=== PATIENT | female | born 1990 | race Caucasian/White ===

== ENCOUNTER → 2019-03-05 15:13 | Outpatient (POV) | payer OTHER, SELFPAY | PROVIDERS: Visit Provider Dentist | DX: Z00.00 Encounter for general adult medical examination without abnormal findings (principal) ==

== ENCOUNTER 2024-12-25 08:40 | Outpatient (CLI) | payer OTHER, SELFPAY ==
--- OUTSIDE RECORDS SUMMARY | 2024-10-14 13:00 | XMS_ITS | Encounter Summary ---
Author Organization [facility] Address [address] [place] [address] Care Team Providers Care Venetian Blind Installer Name Role Phone Jayden Cortes MD, Harold Primary Care Provider + Tej Krishnan MD Unavailable [phone] Ayan Edwards APRN Unavailable [phone] Reason for Visit * Reason Comments Follow-up Encounter Details Date Type Department Care Team (Latest Contact Info) Description 10/14/2024 1:00 PM EDT Office Visit [facility] [address] [facility] [address] [place] [address] Audrey Pike PA [address] [place] [address] Femoroacetabular impingement of right hip (Primary Dx); Greater trochanteric bursitis of right hip Social History Tobacco Use Types Packs/Day Years Used Date Smoking Tobacco: Never Passive Smoke Exposure: Never Smokeless Tobacco: Never Alcohol Use Standard Drinks/Week Comments Yes 2 (1 standard drink = 0.6 oz pur e alcohol) Rarely Comments No Sex and Gender Information Value Date Recorded Sex Assigned at Not on file Legal Sex Female 12:24 AM EDT Gender Identity Not on file Sexual Orientation Not on file documented as of this encounter Ordered Prescriptions Prescription Sig Dispense Quantity Refills Last Filled Start Date End Date meloxicam (MOBIC) 15 mg Oral Tablet Take 1 Tablet by mouth daily. 30 Tablet 10/14/2024 documented in this encounter Progress Notes * Audrey Pike PA - 10/14/2024 1:00 PM EDT Images from the original note were not included. PATIENT NAME: Josiah Sutton DATE OF (age): 34 y.o. PHYSICIAN: Jeffrey Starr MD Date of Visit: 10/14/2024 Subjective: Chief Complaint: Chief Complaint Patient presents with Right Hip - Follow-up Patient returns for evaluation of right hip(s). Patient is doing: She still experiencing the same symptoms. Did not start physical therapy until last week Relevant point review of (Review of Systems Form, Injury Forms, and/or History Forms) dated 10/14/2024 (or most recent visit to [facility]) was reviewed and all pertinent positives were reviewed and are available in the patient's chart Objective: General: Well-appearing with appropriate affect. No acute distress.normal body habitus. Appears stated age. Head: Normocephalic atraumatic Ears and Nose: External appearance is normal. Skin: Warm and dry. Color natural. Neuro: Alert and orientated to person,place and time. Normal neurosensory response to touch. Pulmonary: Respirations are unlabored and regular. Chest expansion appears symmetic. Cardiovascular: No signs of peripheral edema. Gait: Walks with a nonantalgic gait. Psychiatric: Mood is appropriate for circumstances. Ortho Exam: Negative logroll. Negative Stinchfield. Positive CELESTINE. Positive FADIR. Full range of motion. No tenderness palpation of the greater trochanter. Positive tenderness to palpation over the right SI joint. Assessment and Plan: Patient has right hip femoroacetabular impingement and greater trochanteric bursitis. She has been taking meloxicam with some relief. She completed her first session of physical therapy last week. She is noting a catching sensation in the hip and pain with hip rotation. At this point I would recommend completing 6 weeks of physical therapy as she just recently started. If no improvement, will order MRI of the right hip to evaluate for labral tear. She does have some tenderness to palpation overthe right SI joint and we discussed this could be another pain generator. I will have the patient follow-up in 6 weeks. Diagnoses and all orders for this visit: Femoroacetabular impingement of right hip Greater trochanteric bursitis of right hip Other orders - meloxicam (MOBIC) 15 mg Oral Tablet; Take 1 Tablet by mouth daily. Dispense: 30 Tablet; Refill: 0 Imaging results: None today DME Summary No orders found for display Audrey Pike PA-C documented in this encounter Plan of Treatment Upcoming Encounters Date Type Department Care Team (Late st Contact Info) Description 12/26/2024 1:00 PM EDT Ancillary Procedure [facility] MRI [address] [place] [address] Audrey Pike PA [address] [place] [address] 12/30/2024 9:15 AM EDT Office Visit [facility] [address] [address] Jeffrey Starr MD [address] [place] [address] 12/30/2024 11:10 AM EDT Clinical Support [facility] [address] [phone] 02/03/2025 10:30 AM EST Office Visit [facility] [address] [address] Garry Wilson MD [address] [address] 04/08/2025 3:40 PM EST Office Visit [facility] [address] [place] [address] Bonnie Callahan MD 40 [facility] [address] [place] [address] documented as of this encounter Visit Diagnoses Diagnosis Femoroacetabular impingement of right hip- Primary Enthesopathy of hip region Greater trochanteric bursitis of right hip Enthesopathy of hip region documented in this encounter Care Teams Venetian Blind Installer Relationship Specialty Start Date End Date Jorge Carpenter MD [address] [place] [phone] PCP - General Family Medicine 07/21/12 Tej Krishnan MD [address] [place] [phone] Otolaryngology 06/03/23 Ayan Edwards APRN [address] [place] [address] Nurse Practitioner 08/21/23 documented as of this encounter
--- OUTSIDE RECORDS SUMMARY | 2024-11-11 09:00 | XMS_ITS | Encounter Summary ---
Author Organization [facility] Address [address] [place] [address] Care Team Providers Care Floor Cashier Name Role Phone Jayden Cortes MD, Jorge Primary Care Provider + Tej Krishnan MD Unavailable [phone] Ayan Edwards APRN Unavailable [phone] Reason for Visit * Reason Comments Pain Encounter Details Date Type Department Care Team (Late st Contact Info) Description 11/11/2024 9:00 AM EDT Office Visit [facility] [address] [facility] [address] [place] [address] Dale Pop, DP [address] [place] [address] Right foot pain (Primary Dx); Tarsometatarsal (joint) (ligament) sprain, right, initial encounter; Peroneal tendonitis, right; Poorly controlled diabetes mellitus (HCC) Social History Tobacco Use Types Packs/Day Years [...] on file documented as of this encounter Progress Notes * Cristian Castro Ortho Tech - 11/11/2024 9:00 AM EDTAssociated Order(s): short leg walking cast Short leg walking cast Date/Time: 11/11/2024 9:00 AM Performed by: Cristian Castro Ortho Tech Authorized by: Dale Pop DPM Consent given by: patient Timeout: Immediately prior to procedure a time out was called to verify the correct patient, procedure, equipment, system support specialist and site/side marked as required Pre-procedure assessment neurovascularly intact Procedure Manipulation performed? no manipulation performed Immobilization: cast Cast type: short leg Supplies used: cotton padding and Ortho-Glass (Stockinette, 4'' webroll, 6'' webroll, 5 rolls of 3'' fiberglass) Post-procedure assessment neurovascularly intact Patient tolerance: patient tolerated the procedure well with no immediate complications Comments Short leg walking cast with plantar plate and cast shoe applied in the usual fashion extending pastthe metatarsal heads. Tolerated well, no issues. NVI and eudermic post-application. Cast care instruction provided. Pt verbalized cast comfort and demonstrated ability to ambulate comfortably prior to leaving today. * Dale Pop DPM - 11/11/2024 9:00 AM EDT Images from the original note were not included. PATIENT NAME: Josiah Sutton DATE OF (age): 34 y.o. PHYSICIAN: Dale Pop DPM Date of Visit: 11/11/2024 Subjective: Chief Complaint: Chief Complaint Patient presents with Right Foot - Pain History: Josiah Sutton is a 34 y.o. female. I am familiar with this patient for multiple previous injuries. Disability keeps her away from work. She usually wears bilateral AFOs. 3 weeks ago, walking without the brace, she rolled her right ankle. Her AFO is now providing no help to her midfoot pain. Past Medical History: Reviewed registration form and medical history. Past Surgical History: Reviewed registration form and medical history. Family History: Reviewed registration form and medical history. Social History: Reviewed registration form and medical history. Review of Systems: Reviewed registration form and medical history. Objective Once again this is a diabetic patient who is not showing signs of peripheral neuropathy or ischemia. She has pain at the 4th and 5th metatarsal base consistent with a tarsometatarsal sprain. She has acute pain at the insertion of the peroneus brevis tendon on the styloid process of the fifth metatarsal consistent with a tendon strain. Gait is altered to control those areas. I do not see other difficulties. Imaging We repeated x-rays of the right foot, AP, medial oblique, and lateral projections. They remain within normal limits at the fifth ray and elsewhere. Assessment Diagnoses and all orders for this visit: Right foot pain - XR FOOT RIGHT AP LATERAL AND OBLIQUE STANDING; Future - TX APPLICATION SHORT LEG CAST WALKING/AMBULATORY - TX CAST SUP SHRT LEG FIBERGLASS - short leg walking cast - TX AMBULATORY SURGICAL BOOT EAC Tarsometatarsal (joint) (ligament) sprain, right, initial encounter - TX APPLICATION SHORT LEG CAST WALKING/AMBULATORY - TX CAST SUP SHRT LEG FIBERGLASS - short leg walking cast - TX AMBULATORY SURGICAL BOOT EAC Peroneal tendonitis, right - TX APPLICATION SHORT LEG CAST WALKING/AMBULATORY - TX CAST SUP SHRT LEG FIBERGLASS - short leg walking cast - TX AMBULATORY SURGICAL BOOT EAC Poorly controlled diabetes mellitus (HCC) (Chronic) - TX APPLICATION SHORT LEG CAST WALKING/AMBULATORY - TX CAST SUP SHRT LEG FIBERGLASS - short leg walking cast - TX AMBULATORY SURGICAL BOOT EAC Plan Once again the patient is advised to try to get control of her blood sugars. Once again she is apprised of sequelae. Since the AFO is not providing enough stability to control the tarsometatarsal sprain or the insertional peroneus brevis tendinitis, immobilization is indicated. Will place the patient in a right short leg walking cast with proper education for use. The follow-up is in 3 weeks and assumes weekly improvement. I am having patient bring her AFOs with her for possible use. I will consider further tests or treatments at that time. DME Summary Normal Orders This Visit [place] AMBULATORY SURGICAL BOOT EAC [[id number] [facility]] Order #: [id number] This ambulatory patient has been prescribed a cast/post op shoe which is designed to provide support and comfort post-surgery, injury, or casting in addition providing shock absorption to the right foot and lower leg. Patient prescribed to wear the shoe during all ADLs so as not to cause further damage. Patient is to wear the product as prescribed until next patient visit. Verbal and written instructions for the use and application of this item were given. Patient was instructed that should the brace result in increased pain, decreased sensation, increased swelling or an overall worsening of their medical condition, to please contact our office immediately. Dale Pop DPM documented in this encounter Plan of Treatment Upcoming Encounters Date Type Department Care Team (Late st Contact Info) Description 12/26/2024 1:00 PM EDT [facility] [address] [place] [address] Audrey Pike PA [address] [place] [address] 12/30/2024 9:15 AM EDT Office Visit [facility] [address] [address] Jeffrey Starr MD [address] [place] [address] 12/30/2024 11:10 AM EDT Clinical Support [facility] [address] [address] 02/03/2025 10:30 AM EST Office Visit [facility] [address] [address] Garry Wilson MD [address] [address] 04/08/2025 3:40 PM EST Office Visit [facility] [address] [place] [address] Bonnie Callahan MD [address] [address] Scheduled Orders Name Type Priority Associated Diagnoses Orde r Schedule TX APPLICATION SHORT LEG CAST WALKING/AMBULATORY TX Charge Routine Right foot pain Tarsometatarsal (joint) (ligament) sprain, right, initial encounter Peroneal tendonitis, right Poorly controlled diabetes mellitus (HCC) Ordered: 11/11/2024 TX CAST SUP SHRT LEG FIBERGLASS TX Charge Routine Right foot pain Tarsometatarsal (joint) (ligament) sprain, right, initial encounter Peroneal tendonitis, right Poorly controlled diabetes mellitus (HCC) Ordered: 11/11/2024 TX AMBULATORY SURGICAL BOOT EAC TX Charge Routine Right foot pain Tarsometatarsal (joint) (ligament) sprain, right, initial encounter Peroneal tendonitis, right Poorly controlled diabetes mellitus (HCC) Ordered: 11/11/2024 documented as of this encounter Procedures Procedure Name Priority Date/Time Associated Diagnosis Comments CAST APPLICATION Routine 11/11/2024 9:00 AM EDT Right foot pain Tarsometatarsal (joint) (ligament) sprain, right, initial encounter Peroneal tendonitis, right Poorly controlled diabetes mellitus (HCC) documented in this encounter Results * XR FOOT RIGHT AP LATERAL AND OBLIQUE STANDING (11/11/2024 9:24 AM EDT) Narrative Doug Corbin - 11/11/2024 9:24 AM EDT Please see physician's note from office encounter for x-ray imaging result Dale Pop DPM IMG DIAGNOSTIC IMAGING OR DERABLES Final Result * short leg walking cast (11/11/2024 9:00 AM EDT) Narrative [facility] - 11/11/2024 9:00 AM EDT Cristian Castro Computer Numerical Control Operator 11/12/2024 1:44 PM Short leg walking cast Date/Time: 11/11/2024 9:00 AM Performed by: Cristian Castro Computer Numerical Control Operator Authorized by: Dale Pop DPM Consent given by: patient Timeout: Immediately prior to procedure a time out was called to verify the correct patient, procedure, equipment, system support specialist and site/side marked as required Pre-procedure assessment neurovascularly intact Procedure Manipulation performed? no manipulation performed Immobilization: cast Cast type: short leg Supplies used: cotton padding and Ortho-Glass (Stockinette, 4'' webroll, 6'' webroll, 5 rolls of 3'' fiberglass) Post-procedure assessment neurovascularly intact Patient tolerance: patient tolerated the procedure well with no immediate complications Comments Short leg walking cast with plantar plate and cast shoe applied in the usual fashion extending past the metatarsal heads. Tolerated well, no issues. NVI and eudermic post-application. Cast care instruction provided. Pt verbalized cast comfort and demonstrated ability to ambulate comfortably prior to leaving today. Dale Pop DPAnn Marie PROCEDURE/MINOR SURGICAL ORDERABLES Final Result [facility] documented in this encounter Visit Diagnoses Diagnosis Right foot pain- Primary Pain in limb Tarsometatarsal (joint) (ligament) sprain, right, initial encounter Peroneal tendonitis, right Poorly controlled diabetes mellitus (HCC) Type II or unspecified type diabetes mellitus without mention of complication, not stated as uncontrolled Right foot pain Pain in limb documented in this encounter Care Teams Floor Cashier Relationship Specialty Start Date End Date Jorge Carpenter MD [address] [place] [phone] PCP - General Family Medicine 07/21/12 Tej Krishnan MD [address] [place] [phone] Otolaryngology 06/03/23 Ayan Edwards APRN [address] [place] [address] Nurse Practitioner 08/21/23 documented as of this encounter
--- OUTSIDE RECORDS SUMMARY | 2024-11-11 09:20 | XMS_ITS | Encounter Summary ---
Author Organization [facility] Address [address] [place] [address] Care Team Providers Care Process Coordinator Name Role Phone Jayden Cortes MD, Jorge Primary Care Provider + Tej Krishnan MD Unavailable [phone] Ayan Edwards APRN Unavailable [phone] Encounter Details Date Type Department Care Team (Latest Contact Info) Description 11/11/2024 9:20 AM EDT Ancillary Procedure [facility] [address] [facility] [address] [place] [address] Dale Pop, DPAnn Marie [address] [place] [address] Right foot pain Social History Tobacco Use Types Packs/Day Years [...] on file documented as of this encounter Plan of Treatment Upcoming Encounters Date Type Department Care Team (Late st Contact Info) Description 12/26/2024 1:00 PM EDT Ancillary Procedure [facility] [address] [place] [address] Audrey Pike PA [address] [place], [place] [phone] 12/30/2024 9:15 AM EDT Office Visit [facility] [address] [address] Jeffrey Starr MD [address] [place] [address] 12/30/2024 11:10 AM EDT Clinical Support [facility] [address] [address] 02/03/2025 10:30 AM EST Office Visit [facility] [address] [address] Garry Wilson MD [address] [address] 04/08/2025 3:40 PM EST Office Visit [facility] [address] [place] [address] Bonnie Callahan MD [address] [phone] documented as of this encounter Procedures Procedure Name Priority Date/Time Associated Diagnosis Comments XR FOOT RIGHT AP LATERAL AND OBLIQUE STANDING Routine 11/11/2024 9:24 AM EDT Right foot pain documented in this encounter Results * XR FOOT RIGHT AP LATERAL AND OBLIQUE STANDING (11/11/2024 9:24 AM EDT) Narrative Doug Corbin - 11/11/2024 9:24 AM EDT Please see physician's note from office encounter for x-ray imaging result us Dale Pop DPM IMG DIAGNOSTIC IMAGING OR DERABLES Final Result documented in this encounter Visit Diagnoses Diagnosis Right foot pain Pain in limb documented in this encounter Care Teams Process Coordinator Relationship Specialty Start Date End Date Jorge Carpenter MD [address] [place] [address] PCP - General Family Medicine 07/21/12 Tej Krsihnan MD [address] [place] [phone] Otolaryngology 06/03/23 Ayan Edwards APRN [address] [place] [address] Nurse Practitioner 08/21/23 documented as of this encounter
--- OUTSIDE RECORDS SUMMARY | 2024-11-25 14:05 | XMS_ITS | Encounter Summary ---
Author Organization [facility] Address [address] [facility] [address] [place] [address] Care Team Providers Care Network Admin Name Role Phone Jayden Cortes MD, Jorge Primary Care Provider + Tej Krishnan MD Unavailable Ayan Edwards APRN Unavailable [phone] Reason for Visit * Reason Comments Immunotherapy Encounter Details Date Type Department Care Team (Latest Contact Info) Description 11/25/2024 2:05 PM EDT Clinical Support [facility] [address] [phone] Allergic rhinitis due to pollen, unspecified seasonality (Primary Dx); Need for desensitization to allergens Social History Tobacco Use Types Packs/Day Years [...] as of this encounter Progress Notes * Angelica Hatfield CCMA - 11/25/2024 2:05 PM EDT Two patient identifiers were verified immediately before administering 2 injections from CLIFTON and OP1 at 0.1 ml documented in this encounter Plan of Treatment Upcoming Encounters Date Type Department Care Team (Late st Contact Info) Description 12/26/2024 1:00 PM EDT Ancillary Procedure [facility] [address] [place] [address] Audrey Pike PA [address] [place] [address] 12/30/2024 9:15 AM EDT Office Visit [facility] [address] [address] Jeffrey Starr MD [address] [place] [address] 12/30/2024 11:10 AM EDT Clinical Support [facility] [address] [phone] 02/03/2025 10:30 AM EST Office Visit [facility] [address] [address] Garry Wilson MD [address] [address] 04/08/2025 3:40 PM EST Office Visit [facility] [address] [address] Bonnie Callahan MD [address] [address] documented as of this encounter Visit Diagnoses Diagnosis Allergic rhinitis due to pollen, unspecified seasonality- Primary Need for desensitization to allergens documented in this encounter Care Teams Network Admin Relationship Specialty Start Date End Date Jorge Carpenter MD [address] [place] [phone] PCP - General Family Medicine 07/21/12 Tej Krishnan MD [address] [place] [phone] Otolaryngology 06/03/23 Ayan Edwards APRN [address] [place] [address] Nurse Practitioner 08/21/23 documented as of this encounter
--- OUTSIDE RECORDS SUMMARY | 2024-11-25 16:00 | XMS_ITS | Encounter Summary ---
Author Organization [facility] Address [address] [place] [address] Care Team Providers Care Asian Studies Professor Name Role Phone Jayden Cortes MD, Jorge Primary Care Provider + Tej Krishnan MD Unavailable [phone] Ayan Edwards APRN Unavailable [phone] Reason for Referral * MRI/CAT Scan (Routine) - AFF Authorized Specialty Diagnoses / Procedures Referred By Contmackenzie t Referred To Contact Orthopedic Surgery Diagnoses Femoroacetabular impingement of right hip Greater trochanteric bursitis of right hip Procedures MRI HIP RIGHT WO CONTRAST Audrey Pike PA [address] [place] [address] Phone: tel: fax: [facility] [address] [place] [phone] Phone: tel: fax: Referral ID Status Reason Start Date Expiration Date Visits Requested Visits Authorized [id number] AFF Authorized 11/25/2024 11/25/2025 1 1 Reason for Visit * Reason Comments Follow-up Encounter Details Date Type Department Care Team (Latest Contact Info) Description 11/25/2024 4:00 PM EDT Office Visit [facility] [address] [place] [address] Audrey Pike PA [address] [place] [address] Femoroacetabular impingement of right hip (Primary Dx); [...] as of this encounter Progress Notes * Audrey Pike PA - 11/25/2024 4:00 PM EDT Images from the original note were not included. PATIENT NAME: Josiah Sutton DATE OF (age): 34 y.o. PHYSICIAN: Jeffrey Starr MD Date of Visit: 11/25/2024 Subjective: Chief Complaint: Chief Complaint Patient presents with Right Hip - Follow-up Patient returns for evaluation of right hip(s). Patient is doing: She still has pain at this point. She has done physical therapy which has not really helped, however she recently broke her foot which has hindered the ability to complete this. Still has tenderness when lying on her side at night. Relevant point review of (Review of Systems Form, Injury Forms, and/or History Forms) dated [facility]25[facility]20[facility] was reviewed and all pertinent positives were [...] Mood is appropriate for circumstances. Ortho Exam: Right hip- Negative logroll. Positive Stinchfield. Negative CELESTINE. Positive CELESTINE. Tenderness palpation of thegreater trochanter. 5/5 strength with resisted abduction. Assessment and Plan: Patient has right hip DEBBY and trochanteric bursitis. She tried physical therapy and meloxicam, however, she is still experiencing pain. Pain is located in the groin and over the lateral hip. We discussed trying a cortisone injection into the greater trochanter today, however she would like to avoid this as she has diabetes. At this point I recommendMRI of the hip to rule out labral tear. Follow-up after the MRI. Diagnoses and all orders for this visit: Femoroacetabular impingement of right hip - MRI HIP RIGHT WO CONTRAST; Future Greater trochanteric bursitis of right hip - MRI HIP RIGHT WO CONTRAST; Future Imaging results: None today DME Summary No orders found for display Audrey Pike PA-C documented in this encounter Plan of Treatment Upcoming Encounters Date Type Department Care Team (Late st Contact Info) Description 12/26/2024 1:00 PM EDT [facility] [address] [place] [address] Audrey Pike PA [address] [place] [address] 12/30/2024 9:15 AM EDT Office Visit [facility] [address] [address] Jeffrey Starr MD [address] [place] [address] 12/30/2024 11:10 AM EDT Clinical Support [facility] [address] [phone] 02/03/2025 10:30 AM EST [facility] [address] [address] Garry Wilson MD [address] [place] [address] 04/08/2025 3:40 PM EST Office Visit [facility] [address] [place], [place] [phone] Bonnie Callahan MD 40 [facility] 101 [place] [address] Scheduled Orders Name Type Priority Associated Diagnoses Orde r Schedule MRI HIP RIGHT WO CONTRAST Imaging Routine Femoroacetabular impingement of right hip Greater trochanteric bursitis of right hip 1 Occurrences starting 11/25/2024 until 11/25/2025 documented as of this encounter Visit Diagnoses Diagnosis Femoroacetabular impingement of right hip- Primary Enthesopathy of hip region Greater trochanteric bursitis of right hip Enthesopathy of hip region documented in this encounter Care Teams Asian Studies Professor Relationship Specialty Start Date End Date Jorge Carpenter MD [address] [place] [phone] PCP - General Family Medicine 07/21/12 Tej Krishnan MD [address] [place] [phone] Otolaryngology 06/03/23 Ayan Edwards APRN [address] [place] [phone] Nurse Practitioner 08/21/23 documented as of this encounter
--- OUTSIDE RECORDS SUMMARY | 2024-11-30 14:20 | XMS_ITS | Encounter Summary ---
Author Organization [facility] Address [address] [facility] [address] [place] [address] Care Team Providers Care Band Splicer Name Role Phone Jayden Cortes MD, Jorge Primary Care Provider + Tej Krishnan MD Unavailable [phone] Ayan Edwards APRN Unavailable [phone] Reason for Visit * Reason Comments Immunotherapy Encounter Details Date Type Department Care Team (Latest Contact Info) Description 11/30/2024 2:20 PM EDT Clinical Support [facility] [address] [phone] Allergic rhinitis due to pollen, [...] Progress Notes * Angelica Hatfield CCMA - 11/30/2024 2:20 PM EDT Two patient identifiers were verified immediately before administering 2 injections from CLIFTON and OPat 0.2 ml documented in this encounter Plan of Treatment Upcoming Encounters Date Type Department Care Team (Late st Contact Info) Description 12/26/2024 1:00 PM EDT Ancillary Procedure [facility] [address] [place] [address] Audrey Pike PA [address] [place] [address] 12/30/2024 9:15 AM EDT [facility] [address] [address] Jeffrey Starr MD [address] [place] [address] 12/30/2024 11:10 AM EDT Clinical Support [facility] [address] [phone] 02/03/2025 10:30 AM EST [facility] [address] [address] Garry Wilson MD [address] [address] 04/08/2025 3:40 PM EST Office Visit [facility] [address] [place] [address] Bonnie Callahan MD [address] [address] documented as of this encounter Visit Diagnoses Diagnosis Allergic rhinitis due to pollen, unspecified seasonality- Primary Need for desensitization to allergens documented in this encounter Care Teams Band Splicer Relationship Specialty Start Date End Date Jorge Carpenter MD [address] [place] [phone] PCP - General Family Medicine 07/21/12 Tej Krishnan MD [address] [place] [phone] Otolaryngology 06/03/23 Ayan Edwards APRN [address] [place] [phone] Nurse Practitioner 08/21/23 documented as of this encounter
--- OUTSIDE RECORDS SUMMARY | 2024-12-09 14:55 | XMS_ITS | Encounter Summary ---
Author Organization [facility] Address [address] [address] Care Team Providers Care Rental Sales Representative Name Role Phone Jayden Cortes MD, [place] Primary Care Provider + Tej Krishnan MD Unavailable [phone] Ayan Edwards APRN Unavailable [phone] Reason for Visit * Reason Comments Immunotherapy Encounter Details Date Type Department Care Team (Latest Contact Info) Description 12/09/2024 2:55 PM EDT Clinical Support [facility] [address] [phone] Allergic rhinitis due to pollen, [...] as of this encounter Progress Notes * Melany Braden MA - 12/09/2024 2:55 PM EDT Two patient identifiers were verified immediately before administering 2 injections from CLIFTON and OP1 at 0.3 ml documented in this encounter Plan of Treatment Upcoming Encounters Date Type Department Care Team (Late st Contact Info) Description 12/26/2024 1:00 PM EDT Ancillary Procedure [facility] [address] [place] [address] Audrey Pike PA [address] [place] [address] 12/30/2024 9:15 AM EDT [facility] [address] [address] Jeffrey Starr MD [address] [place] [address] 12/30/2024 11:10 AM EDT Clinical Support [facility] [address] [phone] 02/03/2025 10:30 AM EST [facility] [address] [address] Garry Wilson MD [address] [address] 04/08/2025 3:40 PM EST Office Visit [facility] [address] [address] Bonnie Callahan MD [address] [address] documented as of this encounter Visit Diagnoses Diagnosis Allergic rhinitis due to pollen, unspecified seasonality- Primary Need for desensitization to allergens documented in this encounter Care Teams Rental Sales Representative Relationship Specialty Start Date End Date Jorge Carpenter MD [address] [place] [phone] PCP - General Family Medicine 07/21/12 Tej Krishnan MD [address] [place] [phone] Otolaryngology 06/03/23 Ayan Edwards APRN [address] [place] [phone] Nurse Practitioner 08/21/23 documented as of this encounter
--- OUTSIDE RECORDS SUMMARY | 2024-12-09 15:45 | XMS_ITS | Encounter Summary ---
Author Organization [facility] Address [address] [place] [address] Care Team Providers Care Employee Development Director Name Role Phone Jayden Cortes MD, Jorge Primary Care Provider + Tej Krishnan MD Unavailable [phone] Ayan Edwards APRN Unavailable [phone] Reason for Visit * Reason Comments Follow-up Encounter Details Date Type Department Care Team (Latest Contact Info) Description 12/09/2024 3:45 PM EDT Office Visit [facility] [address] [facility] [address] [place] [address] Dale Pop DPM [address] [place] [phone] Sprain of ligament of tarsometatarsal joint of right foot, subsequent encounter (Primary Dx); Right foot pain; Peroneal tendonitis, right; Poorly controlled diabetes mellitus [...] as of this encounter Progress Notes * Dale Pop DPM - 12/09/2024 3:45 PM EDT Images from the original note were not included. PATIENT NAME: Josiah Sutton DATE OF (age): 34 y.o. PHYSICIAN: Dale Pop DPM Date of Visit: 12/09/2024 Subjective: Chief Complaint: Chief Complaint Patient presents with Right Foot - Follow-up History: Josiah Sutton is a 34 y.o. female. Once again, this is a diabetic with chronic poor control. She is here status post immobilization of her insertional peroneal tendinitis and her tarsometatarsal sprain causing pain at the lateral right midfoot. She describes improvement in the cast. Past Medical History: Reviewed registration form and medical history. Past Surgical History: Reviewed registration form and medical history. Family History: Reviewed registration form and medical history. Social History: Reviewed registration form and medical history. Review of Systems: Reviewed registration form and medical history. Objective Removal of the cast shows no neurovascular or dermatologic damage to the right leg. Both the pericuboid area and the insertion of the peroneus brevis tendon are greatly improved but not completely resolved in terms of pain. I do not see other changes. Imaging Deferred Assessment Diagnoses and all orders for this visit: Sprain of ligament of tarsometatarsal joint of right foot, subsequent encounter Right foot pain Peroneal tendonitis, right Poorly controlled diabetes mellitus (HCC) (Chronic) Plan The patient tried her AFO on, and we felt her stability was sufficient in the AFO that we could discontinue cast immobilization. The patient will continue to strengthen the leg and utilize the AFO appropriately. If she deteriorates once again, she knows she can call so that we can recast the right leg, putting the distal edge past the metatarsal heads as previous. I would want to see her 2 weeks after that. I do not believe she will need to be casted. She will follow- up only as needed, and she is again advised to get her blood sugars under control. DME Summary No orders found for display Dale Pop DPM * Leann Fregoso MA - 12/09/2024 3:45 PM EDTAssociated Order(s): Cast application Cast application Date/Time: 12/09/2024 3:45 PM Performed by: Leann Fregoso MA Authorized by: Dale Pop DPM Consent given by: patient Site marked: site marked Timeout: Immediately prior to procedure a time out was called to verify the correct patient, procedure, equipment, technician support engineer and site/side marked as required Injury Location details: right foot Pre-procedure assessment neurovascularly intact Procedure Immobilization: cast Cast type: short leg walking Modifications: cast removal Post-procedure assessment neurovascularly intact Patient tolerance: patient tolerated the procedure well with no immediate complications Comments Cast removed from pt using zip stick. Pt tolerated removal well with skin intact and was taken to xray. documented in this encounter Plan of Treatment Upcoming Encounters Date Type Department Care Team (Late st Contact Info) Description 12/26/2024 1:00 PM EDT [facility] [address] [place] [address] Audrey Pike PA [address] [place] [address] 12/30/2024 9:15 AM EDT Office Visit [facility] [address] [address] Jeffrey Starr MD [address] [place] [address] 12/30/2024 11:10 AM EDT Clinical Support [facility] [address] [phone] 02/03/2025 10:30 AM EST [facility] [address] [address] Garry Wilson MD [address] [address] 04/08/2025 3:40 PM EST Office Visit [facility] [address] [place], [place] [phone] Bonnie Callahan MD 40 [facility] [address] [place], [place] [phone] documented as of this encounter Procedures Procedure Name Priority Date/Time Associated Diagnosis Comments CAST APPLICATION Routine 12/09/2024 3:45 PM EDT documented in this encounter Results * Cast application (12/09/2024 3:45 PM EDT) Narrative [facility] - 12/09/2024 3:45 PM EDT Leann Fregoso MA 12/09/2024 5:49 PM Cast application Date/Time: 12/09/2024 3:45 PM Performed by: Leann Fregoso MA Authorized by: Dale Pop DPM Consent given by: patient Site marked: site marked Timeout: Immediately prior to procedure a time out was called to verify the correct patient, procedure, equipment, technician support engineer and site/side marked as required Injury Location details: right foot Pre-procedure assessment neurovascularly intact Procedure Immobilization: cast Cast type: short leg walking Modifications: cast removal Post-procedure assessment neurovascularly intact Patient tolerance: patient tolerated the procedure well with no immediate complications Comments Cast removed from pt using zip stick. Pt tolerated removal well with skin intact and was taken to xray. us Dale Pop DPM PROCEDURE/MINOR SURGICAL ORDERABLES Final Result [facility] documented in this encounter Visit Diagnoses Diagnosis Sprain of ligament of tarsometatarsal joint of right foot, subsequent encounter- Primary Right foot pain Pain in limb Peroneal tendonitis, right Poorly controlled diabetes mellitus (HCC) Type II or unspecified type diabetes mellitus without mention of complication, not stated as uncontrolled documented in this encounter Care Teams Employee Development Director Relationship Specialty Start Date End Date Jorge Carpenter MD [address] [place] [phone] PCP - General Family Medicine 4/29/13 Tej Krishnan MD [address] [phone] Otolaryngology 06/03/23 Ayan Edwards APRN [address] [place] [phone] Nurse Practitioner 08/21/23 documented as of this encounter
--- OUTSIDE RECORDS SUMMARY | 2024-12-23 14:00 | XMS_ITS | Encounter Summary ---
Author Organization [facility] Address [address] [place] [address] Care Team Providers Care Traveling Accountant Name Role Phone Jayden Cortes MD, Jorge Primary Care Provider + Tej Krishnan MD Unavailable [phone] Ayan Edwards APRN Unavailable [phone] Reason for Visit * Reason Comments Follow-up Pain Encounter Details Date Type Department Care Team (Late st Contact Info) Description 12/23/2024 2:00 PM EDT Office Visit [facility] [address] [address] Garry Wilson MD [address] [id number] Arthritis of left acromioclavicular joint (Primary Dx) Social History Tobacco Use Types Packs/Day Years [...] on file documented as of this encounter Last Filed Vital Signs Vital Sign Reading Time Taken Comments Blood Pressure - - Pulse - - Temperature - - Respiratory Rate - - Oxygen Saturation - - Inhaled Oxygen Concentration - - Weight 86.2 kg (190 lb) 12/23/2024 1:09 PM EDT Height 157.5 cm (5' 2 ) 12/23/2024 1:09 PM EDT Body Mass Index 34.75 12/23/2024 1:09 PM EDT documented in this encounter Progress Notes * Garry Wilson MD - 12/23/2024 2:00 PM EDT Images from the original note were not included. Carolina Fritz [facility]/ Orthopaedic Surgery/Sports Medicine [address] [place] [address] Patient Name: Josiah Sutton [id number] Date of : 1990 Patient Primary Care Physician: Jorge Carpenter MD DATE OF VISIT: 12/23/2024 This patient was seen in consultation with Dr. iWlson today. I am acting as a scribe. Chief Complaint: Left shoulder pain. Procedure Note: 02/10/2024 Dr Wilson POSTOPERATIVE DIAGNOSIS: Left knee lateral patellar compression syndrome. PROCEDURE PERFORMED: Left knee arthroscopic lateral release. Medical History: Past Medical History Past Medical History: Diagnosis Date Anemia takes iron for this Angina pectoris Anxiety Asthma Bipolar 1 disorder (HCC) Chronic kidney disease 2014 kidney stones, had stent put in Depression chronic Diabetes mellitus (HCC) VILLAVICENCIO (dyspnea on exertion) Heartburn ULCER History of recurrent ear infection Hyperlipidemia Hypertension Migraine Neuromuscular disorder (HCC) neuropathy bilateral feet Orthopnea has trouble breathing when flat on back Panic attack Shortness of breath Sleep apnea cannot use CPAP because of face mask Torn ligament right foot, bone disease where ankle roles Urinary tract infection on occasion Wears glasses but does not have any right now Review of Systems: Pertinent items are noted in HPI. Review of systems reviewed from patient history form is availablein the patient's chart. BMI: 35.36 per last recorded measurement. History: Josiah Sutton is a 34 y.o. female returns today with complaints of Left shoulder pain. I saw her initially on 10/06/2024. She states that she was helping one of her nieces on the [employer] bars little over a month ago and she let go and she caught her. The pain was not too bad that day but it got worse over time. She saw her primary care physician who gave her steroids orally told her to ice and some exercises that she could do. Now she states the pain is shooting down her arm when she cannot sleep. She notices that the muscle relaxer she takes for her hips do not help. She states that pain is significant and she would like to have a sling today. I sent her for an MRI of her shoulder. She followed up with Dr. Wilson on 10/21/2024. Her MRI showed an intact rotator cuff and biceps tendon. She did have a [place] complex. She had some AC arthritis. She went with a course of anti-inflammatories ice and formal physical therapy with modalities. She did not go to physical therapy she states the home exercise program did nothing for her. I again discussed with her today that they can do modalities to help her with her shoulder including iontophoresis dry needling and other types of procedures that may be beneficial since her MRI does not show any obvious surgical pathology. Physical Exam: The patient is alert and oriented adequately groomed in no acute distress. The shoulder has some pain to the greater tuberosity of the humerus. Mild acromioclavicular discomfort, no posterior cuff discomfort. There is also pain noted to the biceps tendon at the bicipital groove. Range of motion is limited in elevated positions, and with terminal internal and external rotation.Positive impingement sign. The patient is weak in any elevated position but primarily with testing of the supraspinatus today. Good range of motion the elbow and wrist. They are neurovascularly and sensory intact about the arm distally. There is no pain or tenderness to the cervical spine and they have full range of motion to the neck. Imaging Studies: MRI left shoulder without contrast 10/14/2024 [facility] Findings: ROTATOR CUFF & LONG BICIPITAL TENDON: Rotator cuff muscle volume and signal are maintained. The supraspinatus and infraspinatus tendons are intact. The teres minor and subscapularis tendons are intact. Minimal superior cuff tendinosis. The long bicipital tendon is intact and located within the bicipital groove. OSSEOUS STRUCTURES & ARTICULATIONS: No fracture or worrisome marrow i nfiltration. No AVN. The glenohumeral joint is congruent. There is no Hill-Sachs or bony Bankart defect. Intact glenohumeral articular cartilage surfaces. Smooth signal at the biceps labrall anchor is less than 3 mm shows smooth margins. Sublabral recess considered. No paralabral cyst. Other labralsegments are intact. Intact glenohumeral ligament complex. No effusion. The acromioclavicular (AC) joint is congruent and the coracoclavicular ligament complex intact. No os acromiale. Mild AC joint arthritis. No subacromial/subdeltoid bursal fluid distension. IMPRESSION: 1. Intact rotator cuff and long bicipital tendons. 2. Sublabral recess favored at the biceps labral anchor. No propagating labral tear. No paralabral cyst or glenohumeral articular abnormality. 3. Mild AC joint arthritis. Diagnosis: Left shoulder [place] complex mild AC arthritis. Plan: We have discussed the importance of physical therapy and their treatment they will do an initial assessment and progress her through a program. They have other modalities such as iontophoresis dry needling cryotherapy. We also discussed open Luis Manuel, but after discussion of pros and cons, decided to give additional conservative treatment a try. We will schedule her back in 6 weeks. She will continue the diclofenac prn. We have discussed the nature of the diagnosis and treatment options with the patient today. Ample time was given for discussion and questions about different treatment strategies and the patient is in full agreement with our treatment plan. All decisions were made with the patient's full understanding. Carolina Fritz APRN Parts of this note may have been created by a chart review, combined by taking my own patient history. The patient was physically seen and examined by myself, including a personal review of images, tests, and formation of the impression and plan. In addition, this note may been dictated utilizing voice recognition software. Unfortunately this leads to occasional typographical errors. I apologize in advance if the situation occurs. If questions occur please do not hesitate to call our office. The patient was advised to call with any issues or concerns in the future. documented in this encounter Plan of Treatment Upcoming Encounters Date Type Department Care Team (Late st Contact Info) Description 12/26/2024 1:00 PM EDT Ancillary Procedure [facility] [address] [place] [address] Audrey Pike PA [address] [place] [address] 12/30/2024 9:15 AM EDT Office Visit [facility] [address] [address] Jeffrey Starr MD [address] [place] [address] 12/30/2024 11:10 AM EDT Clinical Support [facility] [address] [phone] 02/03/2025 10:30 AM EST Office Visit [facility] [address] [address] Garry Wilson MD [address] [address] 04/08/2025 3:40 PM EST Office Visit [facility] [address] [address] Bonnie Callahan MD [address] [address] documented as of this encounter Visit Diagnoses Diagnosis Arthritis of left acromioclavicular joint- Primary documented in this encounter Care Teams Traveling Accountant Relationship Specialty Start Date End Date Jorge Carpenter MD [address] [place] [phone] PCP - General Family Medicine 07/21/12 Tej Krishnan MD [address] [place] [phone] Otolaryngology 06/03/23 Ayan Edwards APRN [address] [place] [id number] Nurse Practitioner 08/21/23 documented as of this encounter
--- OUTSIDE RECORDS SUMMARY | 2024-12-23 16:05 | XMS_ITS | Encounter Summary ---
Author Organization [facility] Address [address] [facility] [address] [place] [address] Care Team Providers Care Mandarin Teacher Name Role Phone Jayden Cortes MD, Jorge Primary Care Provider + Tej Krishnan MD Unavailable Ayan Edwards APRN Unavailable [phone] Reason for Visit * Reason Comments Immunotherapy Encounter Details Date Type Department Care Team (Latest Contact Info) Description 12/23/2024 4:05 PM EDT Clinical Support [facility] [address] [phone] Allergic rhinitis due to pollen, [...] as of this encounter Progress Notes * Lexy Wild CNA - 12/23/2024 4:05 PM EDT Two patient identifiers were verified immediately before administering 2 injections from [place] and OP1 at 0.3 ml documented in this encounter Plan of Treatment Upcoming Encounters Date Type Department Care Team (Late st Contact Info) Description 12/26/2024 1:00 PM EDT Ancillary Procedure [facility] [address] [place] [address] Audrey Pike PA [address] [place] [address] 12/30/2024 9:15 AM EDT Office Visit [facility] [address] [address] Jeffrey Starr MD [address] [place] [address] 12/30/2024 11:10 AM EDT Clinical Support [facility] [address] [phone] 02/03/2025 10:30 AM EST Office Visit [facility] [address] [address] Garry Wilson MD [address] [address] 04/08/2025 3:40 PM EST Office Visit [facility] [address] [place] [address] Bonnie Callahan MD [address] [address] documented as of this encounter Visit Diagnoses Diagnosis Allergic rhinitis due to pollen, unspecified seasonality- Primary Need for desensitization to allergens documented in this encounter Care Teams Mandarin Teacher Relationship Specialty Start Date End Date Jorge Carpenter MD [address] [place] [phone] PCP - General Family Medicine 07/21/12 Tej Krishnan MD [address] [place] [phone] Otolaryngology 06/03/23 Ayan Edwards APRN [address] [place] [address] Nurse Practitioner 08/21/23 documented as of this encounter
--- OUTSIDE RECORDS SUMMARY | 2024-12-25 08:47 | XMS_ITS | Clinical Summary ---
Author Organization [facility] Address [address] [place] [address] Phone Care Team Providers Care Square Cutter Name Role Phone Jayden Cortes MD, Jorge Primary Care Provider + Tej Krishnan MD Unavailable [phone] Ayan Edwards APRN Unavailable [phone] Allergies Active Allergy Reactions Criticality Noted Date Comments Amoxicillin Swelling 04/09/2023 rash Antihistamine Allergy Shortness Of Breath,Itching,Othe r (See Comments) High 12/07/2015 And blisters Antihistamines - Alkylamine Other (See Comments),Rash High 06/12/2019 Diphenhydramine Hcl Itching 07/25/2017 Diphenhydramine Other (See Comments) High 06/12/2019 Egg Rash,Swelling,Anaph ylaxis,Other (See Comments) High 12/07/2015 Rash and facial swelling Latex Other (See Comments) 07/25/2017 BREAKS OUT FROM BANDAIDS DOES NOT HAVE ISSUES WITH RUBBER BANDS, ELASTIC OR BALLOONS. GETS A RASH WHEN SHE WEARS BANDAIDS Untested Latex allergy Milk Diarrhea,Rash,Swell ing,Anaphylaxis High 12/07/2015 Milk Containing Products (Dairy) Other (See Comments) High 06/12/2019 Penicillins Rash,Hives High 07/13/2014 Wheat Itching,Other (See Comments),Rash,Swel ling,Anaphylaxis High 12/07/2015 Bad stomach ache, facial swelling Medications * This document contains information received from the source organization and may not represent a complete record from that organization. albuterol (PROVENTIL HFA;VENTOLIN HFA) 90 mcg/actuation Inhl HFA Aerosol Inhaler Inhale 2 Puffs into the lungs every 6 hours as needed for Wheezing. Active iron polysaccharides (NIFEREX 150 FORTE PLUS) 150-50-50 mg Oral CapsuleIndications:ir on deficiency anemia Take 150 mg by mouth every morning. Indications: anemia from inadequate iron Active escitalopram oxalate (LEXAPRO) 5 mg Oral Tablet Take 1 Tab by mouth daily. 15 Tab 2 2017 Active BREO ELLIPTA 200-25 mcg/dose Inhl Disk with Device Inhale 1 Puff into the lungs as needed. 3 2017 Active tetrahydrozoline 0.05 % Opht Drops Place 1 Drop into the left eye as needed. Active pantoprazole (PROTONIX) 40 mg Oral Tablet, Delayed Release (E.C.) Take 40 mg by mouth every morning. Active calcium carbonate-vitamin D 500 mg(1,250mg) -200 unit Oral Tablet Take 1 Tablet by mouth 2 times daily (with meals). Active montelukast (SINGULAIR) 10 mg Oral Tablet Take 10 mg by mouth every evening. Active prazosin (MINIPRESS) 1 mg Oral Capsule Take 1 mg by mouth nightly. Active propranoloL (INDERAL) 10 mg Oral Tablet Take 10 mg by mouth as needed. Active traZODone (DESYREL) 100 mg Oral Tablet Take 100 mg by mouth nightly. As needed Active pravastatin (PRAVACHOL) 40 mg Oral Tablet 2020 Active venlafaxine (EFFEXOR-XR) 37.5 mg Oral Capsule, Sust. Release 24 hr 2020 Active VRAYLAR 1.5 mg Oral Capsule 2020 Active ONETOUCH DELICA PLUS LANCET 33 gauge Misc Misc Subcutaneous (Inject under the skin) 1 Each See Admin Instructions. 2020 Active LATUDA 40 mg Oral Tablet 2021 Active DEXCOM G6 TRANSMITTER Misc Device Subcutaneous (Inject under the skin) 1 Device See Admin Instructions. 2021 Active DEXCOM G6 SENSOR Misc Device Subcutaneous (Inject under the skin) 1 Device See Admin Instructions. 2022 Active nitroGLYCERIN (NITRODUR) 0.1 mg/hr TD Patch 24 hrIndications:Lateral epicondylitis of left elbow Place 1 Patch onto the skin daily. Apply to affected area in the morning and take off at night. 30 Patch 2022 Active gabapentin (NEURONTIN) 400 mg Oral Capsule Take 400 mg by mouth nightly. Active OMNIPOD 5 G6 INTRO KIT, GEN 5, SubQ Cartridge Subcutaneous (Inject under the skin) 1 Kit See Admin Instructions. 2022 Active LOW-OGESTREL, 28, 0.3-30 mg-mcg Oral Tablet Take 1 Tablet by mouth daily. 2022 Active metroNIDAZOLE (FLAGYL) 500 mg Oral Tablet Active aspirin 81 mg Oral Tablet, Delayed Release (E.C.) Take 81 mg by mouth daily. Active insulin lispro (HUMALOG) 100 unit/mL SubQ Solution Subcutaneous (Inject under the skin) 1 Units See Admin Instructions. Active meloxicam (MOBIC) 15 mg Oral Tablet Take 15 mg by mouth daily. 2023 Active omeprazole (PRILOSEC) 40 mg Oral Capsule, Delayed Release(E.C.) Take 40 mg by mouth daily. Active azithromycin (ZITHROMAX) 250 mg Oral Tablet Active benzonatate (TESSALON) 100 mg Oral Capsule Active OMNIPOD 5 G6 PODS, GEN 5, SubQ Cartridge Subcutaneous (Inject under the skin) 1 Kit See Admin Instructions. 2023 Active predniSONE (DELTASONE) 20 mg Oral Tablet Active ondansetron (ZOFRAN-ODT) 4 mg Oral Tablet, Rapid Dissolve Take 1 Tablet by mouth every 6 hours as needed for Nausea for up to 12 doses. 12 Tablet 2023 Active azelastine (ASTELIN) 137 mcg (0.1 %) Nasl Trade, Non-AerosolIndication s:Sneezing 2 Sprays in each nostril 2 times daily. Use in each nostril as directed 30 mL 5 2023 Active ranolazine (RANEXA) 500 mg Oral Tablet Sustained Release 12 hr Take 500 mg by mouth 2 times daily. Active lisinopriL (PRINIVIL;ZESTRIL) 5 mg Oral Tablet Take 5 mg by mouth daily. Active allopurinoL (ZYLOPRIM) 100 mg Oral Tablet Take 100 mg by mouth 2 times daily. Active dapagliflozin propanediol (FARXIGA) 5 mg Oral Tablet Take 5 mg by mouth daily. Active metoprolol succinate (TOPROL-XL) 25 mg Oral Tablet Sustained Release 24 hr Take 25 mg by mouth daily. Active rosuvastatin (CRESTOR) 10 mg Oral Tablet Take 10 mg by mouth daily. Active EPINEPHrine (EPIPEN 2-YOHANNES) 0.3 mg/0.3 mL Inj Auto-InjectorIndicati ons:Allergic rhinoconjunctivitis Inject 0.3 mL as directed as needed for Anaphylaxis. One injection as needed for allergic reaction. July repeat. 2 Each 2023 Active promethazine (PHENERGAN) 25 mg Oral Tablet Take 1 Tablet by mouth every 6 hours as needed for Nausea for up to 20 doses. 20 Tablet 2023 Active oxyCODONE (ROXICODONE) 5 mg Oral Tablet Take 1 Tablet by mouth every 4 hours as needed for Major Surgery/Trauma (G89.18) for up to 30 doses. 30 Tablet 2023 Active docusate sodium (COLACE) 100 mg Oral Capsule Take one capsule three times a day while on pain meds 90 Capsule 2023 Active meloxicam (MOBIC) 15 mg Oral TabletIndications:Gre ater trochanteric bursitis of right hip,Femoroacetabular impingement of right hip Take 1 Tablet by mouth daily. 30 Tablet 2024 Active Additional Information Patient not taking.Reason: Other (Duplicate), Reported on 12/09/2024 methylPREDNISolone (MEDROL DOSPACK) 4 mg Oral Tablets, Dose Pack TAKE BY MOUTH DIRECTED ON PACKAGE Active acetaminophen 325 mg Oral Tab Take 650 mg by mouth every 4 hours as needed. for pain 2024 Active ONETOUCH ULTRA TEST Misc Strip USE ONE STRIP TO TEST TWICE DAILY 2024 Active cyanocobalamin 1,000 mcg Oral Tablet Take 1 tablet every day by oral route for 30 days. 2024 Active VITAMIN D 1,250 mcg (50,000 unit) Oral Capsule TAKE ONE CAPSULE BY MOUTH ONCE EVERY WEEK Active ferrous sulfate 325 mg (65 mg iron) Oral Tablet Take 1 tablet every other day by oral route for 30 days. 2024 Active medroxyPROGESTERone (PROVERA) 10 mg Oral Tablet Take 10 mg by mouth daily. Active methylPREDNISolone (MEDROL DOSPACK) 4 mg Oral Tablets, Dose Pack take by mouth as directed on package 2024 Active BD ULTRA-FINE SHORT PEN NEEDLE 31 gauge x 08/07 [facility] Needle USE pen needles TO inject insulin FOUR TIMES DAILY 2024 Active FARXIGA 10 mg Oral Tablet take 1 tablet every day by oral route for 90 days. 2024 Active insulin lispro (HUMALOG) 100 unit/mL SubQ Insulin Pen Inject 300 units into Omnipod every 3 days 2024 Active ONETOUCH DELICA PLUS LANCET 30 gauge [facility] use as directed 2024 Active lurasidone 60 mg Oral Tablet Take one (1) tablet by mouth every evening with a 350 keven meal 2024 Active methylPREDNISolone (MEDROL DOSPACK) 4 mg Oral Tablets, Dose Pack TAKE BY MOUTH DIRECTED ON PACKAGE Active meloxicam (MOBIC) 15 mg Oral Tablet Take 1 Tablet by mouth daily. 30 Tablet 2024 Active diclofenac (VOLTAREN) 75 mg Oral Tablet, Delayed Release (E.C.)Indications:Art hritis of left acromioclavicular joint TAKE ONE TABLET BY MOUTH EVERY MORNING and TAKE ONE TABLET AT BEDTIME 60 Tablet 2 2024 Active diclofenac (VOLTAREN) 75 mg Oral Tablet, Delayed Release (E.C.) Take 1 Tablet by mouth 2 times daily. 60 Tablet 2 12/09 Discontinued Active Problems Problem Noted Date Diagnosed Date Arthritis of left acromioclavicular joint 2024 [place] complex of left shoulder 11/09/2024 Greater trochanteric bursitis of right hip 10/06 Femoroacetabular impingement of right hip 2024 Greater trochanteric bursitis of right hip 09/29 Femoroacetabular impingement of right hip 2024 Greater trochanteric bursitis of right hip 09/08 Femoroacetabular impingement of right hip 2024 Patellar maltracking, left 12/11/2023 Unspecified myringitis, left ear 11/08/2023 Tear of lateral meniscus of right knee, current, subsequent encounter 04/25/2023 Hyperlipidemia 04/18/2023 Musculoskeletal chest pain 04/18/2023 Type 2 diabetes mellitus without complication Tear of lateral meniscus of right knee, current 04/05/2023 Bacterial vaginosis 09/13/2022 Uterine leiomyoma 08/08/2022 Pain in pelvis 07/24/2022 Overview (06/07/2023): chronic Pleuritic pain 05/30/2022 Dyspnea on exertion 12/04/2021 Muscle strain of left shoulder 11/01/2021 Exercise-induced asthma 07/25/2021 Displacement of lumbar inter vertebral disc without myelopathy 05/19/2021 Dysmenorrhea 07/23/2020 Left lower quadrant pain 07/23/2020 Menorrhagia 07/23/2020 Carpal tunnel syndrome of left wrist 06/06/2020 Cyst of right ovary 11/11/2019 Ureteric stone 06/12/2019 Overview (06/07/2023): right, with urosepsis, stent required/removed Sensorineural hearing loss, bilateral 11/21/2018 Tympanic membrane central perforation, left 10/25 Chronic depression 06/12/2018 Headache 06/12/2018 Overview (06/07/2023): notes cyst on back of brain Obstructive sleep apnea syndrome 06/12/2018 Overview (06/07/2023): on Bipap at night Chronic bronchitis 05/14/2018 Gastroesophageal reflux disease 05/14/2018 Iron deficiency anemia 05/14/2018 De Quervain's tenosynovitis, right 02/19/2018 Acute pharyngitis 03/20/2016 Carpal tunnel syndrome of right wrist 02/01/2016 Anxiety 01/30/2016 Diabetes mellitus 01/30/2016 Hypercholesterolemia 01/30/2016 Neuropathy 01/30/2016 Osteopenia 01/30/2016 Bipolar 1 disorder Panic attack Encounters Date Type Department Care Team Description 12/23/2024 4:05 PM EDT Clinical Support [facility] Ancillary Allergy [address] [place] [address] Allergic rhinitis due to pollen, unspecified seasonality (Primary Dx); Need for desensitization to allergens 12/23/2024 2:00 PM EDT Office Visit [facility] [address] [place] [phone] Garry Wilson MD Arthritis of left acromioclavicular joint (Primary Dx) 12/09/2024 3:45 PM EDT Office Visit [facility] [address] [place] [address] Dale Pop, DPM Sprain of ligament of tarsometatarsal joint of right foot, subsequent encounter (Primary Dx); Right foot pain; Peroneal tendonitis, right; Poorly controlled diabetes mellitus (HCC) 12/09/2024 2:55 PM EDT Clinical Support [facility] Ancillary Allergy [address] [place] [address] Allergic rhinitis due to pollen, unspecified seasonality (Primary Dx); Need for desensitization to allergens 12/09/2024 Refill [facility] [address] [address] Garry Wilson MD Medication Refill 11/30/2024 2:20 PM EDT Clinical Support [facility] Ancillary Allergy [address] [place] [address] Allergic rhinitis due to pollen, unspecified seasonality (Primary Dx); Need for desensitization to allergens 11/25/2024 4:00 PM EDT Office Visit [facility] [address] [address] Audrey Pike PA Femoroacetabular impingement of right hip (Primary Dx); Greater trochanteric bursitis of right hip 11/25/2024 2:05 PM EDT Clinical Support [facility] Ancillary Allergy [address] [place] [address] Allergic rhinitis due to pollen, unspecified seasonality (Primary Dx); Need for desensitization to allergens 11/11/2024 9:20 AM EDT Ancillary Procedure [facility] [address] [place] [address] Dale Pop DPM Right foot pain 11/11/2024 9:00 AM EDT Office Visit [facility] [address] [facility], [place] [phone] Dale Pop, DPM Right foot pain (Primary Dx); Tarsometatarsal (joint) (ligament) sprain, right, initial encounter; Peroneal tendonitis, right; Poorly controlled diabetes mellitus (HCC) 10/21/2024 3:15 PM EDT Office Visit [facility] [address] [place] [address] Garry Wilson MD Arthritis of left acromioclavicular joint (Primary Dx); Greg complex of left shoulder 10/21/2024 1:45 PM EDT Office Visit [facility] [address] [place] [address] Manju Owen, PRESTON Greater trochanteric bursitis of right hip (Primary Dx); Femoroacetabular impingement of right hip 10/14/2024 4:05 PM EDT Clinical Support [facility] [address]dary [address] [place] [phone] Seasonal allergic rhinitis due to pollen (Primary Dx); Need for desensitization to allergens 10/14/2024 1:00 PM EDT Office Visit [facility] [address] [address] Audrey Pike PA Femoroacetabular impingement of right hip (Primary Dx); Greater trochanteric bursitis of right hip 10/14/2024 11:30 AM EDT Ancillary Procedure [facility] [address] [place] [address] Left shoulder pain, unspecified chronicity; Strain of right shoulder, initial encounter 10/09/2024 4:00 PM EDT Clinical Support [facility] Anc[facility] Allergy [address] Epi [address] [place] [phone] Seasonal allergic rhinitis due to pollen (Primary Dx); Need for desensitization to allergens 10/07/2024 5:00 PM EDT Office Visit [facility] [address] [place] [address] Manju Owen, PT Greater trochanteric bursitis of right hip (Primary Dx); Femoroacetabular impingement of right hip 10/07/2024 Plan of Care Documentation [facility] [address] [facility] [address] [place] [address] 10/06/2024 2:15 PM EDT Ancillary Procedure [facility] [address] [place], [place] [address] [address] [place] [address] Carolina Fritz APRN 10/06/2024 2:00 PM EDT Office Visit [facility] [address] [place] [phone] Carolina Fritz APRN Strain of right shoulder, initial encounter (Primary Dx); Left shoulder pain, unspecified chronicity 10/05/2024 3:40 PM EDT Office Visit [facility] [address] [place] [address] Bonnie Callahan MD Allergic rhinoconjunctivitis (Primary Dx); Intrinsic eczema; Penicillin allergy 09/29/2024 Telephone [facility] [address] [phone] Jeffrey Starr MD Medication Question from Last 3 Months Immunizations Immunization Administration Dates Next Due HPV Quadrivalent 12/01/2010 Influenza Seasonal Injectable 03/11/2013 Influenza Vaccine Quadrivalent 02/02/2015,2013 Tdap 03/11/2013 Surgical History Surgery Date Site/Laterality Comments TONSILLECTOMY TYMPANOSTOMY TUBE PLACEMENT KIDNEY STONE SURGERY 03/25/2014 - 03/24/2015 Right stent placement DENTAL SURGERY wisdom teeth, back tooth, left side broken in pieces, left hole in jaw HERNIA REPAIR hernia stomach x 2 KIDNEY STONE SURGERY 03/25/2014 - 03/24/2015 Right stent removed LITHOTRIPSY 03/25/2014 - 03/24/2015 Right UPPER GASTROINTESTINAL ENDOSCOPY CARPAL TUNNEL RELEASE 02/02/2016 Hand/Right RIGHT CARPAL TUNNEL RELEASE; Surgeon: Jm Hardin MD; Location: [facility]; Service: Hand ANTERIOR COMPARTMENT DECOMPRESSION 02/20/2018 Right RIGHT DEQUERVAINS RELEASE; Surgeon: Jm Hardin MD; Location: [facility]; Service: Hand SECTION 11/22/2016 x1 CARPAL TUNNEL RELEASE 06/09/2020 Left LEFT CARPAL TUNNEL RELEASE; Surgeon: Jm Hardin MD; Location: [facility]; Service: Hand KNEE ARTHROSCOPY 04/19/2023 Knee/Right RIGHT KNEE ARTHROSCOPY, PARTIAL LATERAL MENISCECTOMY, CYST ASPIRATION; Surgeon: Garry Wilson MD; Location: [facility] OR; Service: Orthopedics KNEE ARTHROTOMY 04/19/2023 Knee/Right Knee/Right `; Surgeon: Garry Wilson MD; Location: [facility]; Service: Orthopedics KNEE ARTHROSCOPY 02/10/2024 Knee/Left LEFT KNEE ARTHROSCOPY, LATERAL RELEASE; Surgeon: Garry Wilson MD; Location: [facility]; Service: Orthopedics Medical History Medical History Date Comments Diabetes mellitus (HCC) Sleep apnea cannot use CPAP because of face mask Shortness of breath VILLAVICENCIO (dyspnea on exertion) Orthopnea has trouble ras thing when flat on back Hyperlipidemia Torn ligament right foot, bone disease where ankle roles Urinary tract infection on occas ion Anemia takes iron for t his Bipolar 1 disorder (HCC) Depression chronic Wears glasses but does not hav e any right now Chronic kidney disease [address] ones, had stent put in Panic attack Migraine History of recurrent ear infection Heartburn ULCER Anxiety Asthma Angina pectoris Hypertension Neuromuscular disorder (HCC) juan a ropathy bilateral feet Family History Medical History Relation Name Comments Alcohol Abuse Father COPD Father Heart Disease Father High Blood Pressure Father Heart Disease Maternal Grandmother COPD Mother Hearing Loss Mother Other Mother rare lung disea se Cancer Other Migraines Other Anesth Problems Neg Hx Relation Name Status Comments Father Alive Maternal Grandmother Mother Alive Other Social History Tobacco Use Types Packs/Day Years Used Date Smoking Tobacco: Never Passive Smoke Exposure: Never Smokeless Tobacco: Never Tobacco Cessation:Counseling Given: Not Answered Alcohol Use Standard Drinks/Week Comments Yes 2 (1 standard drink = 0.6 oz pur e alcohol) Rarely Comments No Sex and Gender Information Value Date Recorded Sex Assigned at Not on file Legal Sex Female 12:24 AM EDT Gender Identity Not on file Sexual Orientation Not on file Obstetrics History Para Term AB IAB SAB Ectopic Multiple Livin g Live Births 1 1 0 0 0 0 0 0 0 1 Date Outcome GA Total Labor Labor/2nd/3rd Weight Sex Type Anes PTL Maisha A1 A5 Name Clin Para Last Filed Vital Signs Vital Sign Reading Time Taken Comments Blood Pressure 124/72 10/05/2024 3:34 PM EDT Pulse 87 10/05/2024 3:34 PM EDT Temperature 36.5 C (97.7 F) 10/05/2024 3:34 PM EDT Respiratory Rate 11 02/10/2024 1:44 PM EST Oxygen Saturation 96% 10/05/2024 3:34 PM EDT Inhaled Oxygen Concentration - - Weight 86.2 kg (190 lb) 12/23/2024 1:09 PM EDT Height 157.5 cm (5' 2 ) 12/23/2024 1:09 PM EDT Body Mass Index 34.75 12/23/2024 1:09 PM EDT Plan of Treatment Upcoming Encounters Date Type Department Care Team (Late st Contact Info) Description 12/26/2024 1:00 PM EDT Ancillary Procedure [facility] [address] [place] [address] Audrey Pike PA [address] [place] [address] 12/30/2024 9:15 AM EDT Office Visit [facility] [address] [place] [address] Jeffrey Starr MD [address] [place] [address] 12/30/2024 11:10 AM EDT Clinical Support [facility] Anc[facility] Allergy [address] [place] [phone] 02/03/2025 10:30 AM EST Office Visit [facility] [address] [place] [address] Garry Wilson MD [address] [place] [address] 04/08/2025 3:40 PM EST Office Visit [facility] [address] [place], [place] [phone] Bonnie Callahan MD [address] [facility] [address] [place], [place] [address] Health Maintenance Due Date Last Done Comments Annual Wellness Exam 05/26/1995 Diabetic Eye Exam 2010 Kidney Health: uACR 2010 Hepatitis B Vaccine (1 of 3 - 19+ 3-dose series) 05/26/2011 Cervical Cancer Screening 2013 Pap Smear 2013 Pneumococcal Vaccine 0-49 (2 of 2 - PCV) 11/22/2017 11/22/2016 HPV/Pap Cotest 2022 DTaP/TDaP/Td (2 - Td or Tdap) 03/11/2023 03/11/2013 Hemoglobin A1c 06/12/2023 12/12/2022 Kidney Health: eGFR 05/04/2024 05/04/2023, 02/19/2023, 05/16/2014 Lipids 06/03/2024 06/04/2023 COVID-19 Vaccine (4 - 2024-2 6 season) 2024 03/29/2021, 10/26/2020, 09/03/2020 Influenza Vaccine (#1) 2024 5, 01/07/2014, 03/11/2013 Meningococcal B Vaccine Aged Out No l onger eligible based on patient's age to complete this topic Procedures Procedure Name Priority Date/Time Associated Diagnosis Comments CAST APPLICATION Routine 12/09/2024 3:45 PM EDT XR FOOT RIGHT AP LATERAL AND OBLIQUE STANDING Routine 11/11/2024 9:24 AM EDT Right foot pain CAST APPLICATION Routine 11/11/2024 9:00 AM EDT Right foot pain Tarsometatarsal (joint) (ligament) sprain, right, initial encounter Peroneal tendonitis, right Poorly controlled diabetes mellitus (HCC) MRI SHOULDER LEFT WO CONTRAST Routine 10/14/2024 12:26 PM EDT Left shoulder pain, unspecified chronicity Strain of right shoulder, initial encounter XR SHOULDER LEFT 3 VIEWS Routine 10/06/2024 2:18 PM EDT Left shoulder pain, unspecified chronicity COMPREHENSIVE METABOLIC PANEL STAT 05/04/2023 11:01 PM EST from Last 3 Months or Most Recently Relevant to Health Maintenance Results * Cast application (12/09/2024 3:45 PM EDT) Narrative [facility] - 12/09/2024 3:45 PM EDT Leann Fregoso MA 12/09/2024 5:49 PM Cast application Date/Time: 12/09/2024 3:45 PM Performed by: Leann Fregoso MA Authorized by: Dale Pop DPM Consent given by: patient Site marked: site marked Timeout: Immediately prior to procedure a time out was called to verify the correct patient, procedure, equipment, customer support analyst and site/side marked as required Injury Location details: right foot Pre-procedure assessment neurovascularly intact Procedure Immobilization: cast Cast type: short leg walking Modifications: cast removal Post-procedure assessment neurovascularly intact Patient tolerance: patient tolerated the procedure well with no immediate complications Comments Cast removed from pt using zip stick. Pt tolerated removal well with skin intact and was taken to xray. Dale Pop DPM PROCEDURE/MINOR SURGICAL ORDERABLES Final Result [facility] * XR FOOT RIGHT AP LATERAL AND OBLIQUE STANDING (11/11/2024 9:24 AM EDT) Doug Wilson - 11/11/2024 9:24 AM EDT Please see physician's note from office encounter for x-ray imaging result us Dale Pop DPM IMG DIAGNOSTIC IMAGING OR DERABLES Final Result * short leg walking cast (11/11/2024 9:00 AM EDT) Narrative [facility] - 11/11/2024 9:00 AM EDT Cristian Castro Ortho Tech 11/12/2024 1:44 PM Short leg walking cast Date/Time: 11/11/2024 9:00 AM Performed by: Cristian Castro Ortho Tech Authorized by: Dale Pop DPM Consent given by: patient Timeout: Immediately prior to procedure a time out was called to verify the correct patient, procedure, equipment, customer support analyst and site/side marked as required Pre-procedure assessment [...] comfortably prior to leaving today. Dale Pop DPM PROCEDURE/MINOR SURGICAL ORDERABLES Final Result Performing Organization Address [facility] de Phone Number [facility] * MRI SHOULDER LEFT WO CONTRAST (10/14/2024 12:26 PM EDT) Narrative [facility] - 10/14/2024 12:26 PM EDT Please see the scanned MRI report associated with this order on the Imaging tab of the patient's chart. Carolina Fritz APRN IMG MRI ORDERABLES Final R esult Performing Organization Address [facility] Co de Phone Number [facility] * XR SHOULDER LEFT 3 VIEWS (10/06/2024 2:18 PM EDT) Narrative [facility] - 10/06/2024 2:18 PM EDT Please see physician's note from office encounter for x-ray imaging result us Carolina Fritz [facility] IMG DIAGNOSTIC IMAGING ORD ERABLES Final Result [facility] * (ABNORMAL) COMPREHENSIVE METABOLIC PANEL (05/04/2023 11:01 PM EST) Sodium 138 136 - 145 mmol/L 05/04/2023 11:27 PM EST [facility] Potassium 4.6 3.5 - 5.0 mmol/L 05/04/2023 11:27 PM EST [facility] Chloride 102 98 - 107 mmol/L 05/04/2023 11:27 PM EST [facility] Total CO2 25 22 - 29 mmol/L 05/04/2023 11:27 PM EST [facility] Anion Gap 11 7 - 16 mmol/L 05/04/2023 11:27 PM EST [facility] Calcium 9.5 8.6 - 10.4 mg/dL 05/04/2023 11:27 PM EST [facility] LABORATORY Glucose Lvl 214(H) 70 - 99 mg/dL 05/04/2023 11:27 PM EST [facility] BUN 11 6 - 20 mg/dL 05/04/2023 11:27 PM EST [facility] Creatinine 0.70 0.51 - 1.30 mg/dL 05/04/2023 11:27 PM EST [facility] Albumin 4.4 3.5 - 5.2 gm/dL 05/04/2023 11:27 PM EST [facility] Total Protein 6.9 6.4 - 8.3 gm/dL 05/04/2023 11:27 PM [facility] Bili Total 0.2 0.2 - 1.3 mg/dL 05/04/2023 11:27 PM [facility] ALT 15 <=41 U/L 05/04/2023 11:27 PM EST [facility] AST 17 <=40 U/L 05/04/2023 11:27 PM [facility] Alk Phos 66 36 - 123 U/L 05/04/2023 11:27 PM EST [facility] eGFR (CKD-EPIcr 2020) 119 >=60 mL/min/1.7 3 m2 05/04/2023 11:27 PM EST [facility] Comment:Estimated GFR was ca lculated using the CKD-EPIcr (2020) equation refit without race. The equation is recommended by the National Kid[employer] - [place] [employer]ph[employer] Task Force. Blood VENOUS BLOOD / Unknown Venipuncture / Unknown 05/04/2023 11:01 PM EST 05/04/2023 11:07 PM EST Jerry Perla MD CHEMISTRY ORDERABLES Final Result [facility] [address] [facility] [place] [address] from Last 3 Months or Most Recently Relevant to Health Maintenance Insurance [facility] [employer] [facility] [address] AET [employer] [facility] [place] [address] [facility] [address] [facility] [address] AETNA [facility] [place] [address] [facility] [address] Advance Directives For more information, please contact: [phone] * Full Code (Latest Code Status on File) Date Activated Date Inactivated Comments 04/18/2017 12:36 AM 04/20/2017 10:04 PM Care Teams Square Cutter Relationship Specialty Start Date End Date Jorge Carpenter MD [address] [place] [phone] PCP - General Family Medicine 07/21/12 Tej Krishnan MD [address] [place] [phone] Otolaryngology 06/03/23 Ayan Edwards APRN [address] [place] [address] Nurse Practitioner 08/21/23
--- OUTSIDE RECORDS SUMMARY | 2024-12-25 08:47 | XMS_ITS | Encounter Summary ---
Author Organization [facility] Address [address] [place] [address] Care Team Providers Care Cable Tower Operator Name Role Phone Jayden Cortes MD, Jorge Primary Care Provider + Tej Krishnan MD Unavailable [phone] Ayan Edwards APRN Unavailable [phone] Reason for Visit * Reason Comments Medication Refill Encounter Details Date Type Department Care Team (Late st Contact Info) Description 12/09/2024 Refill [facility] [address] [address] Garry Wilson MD [address] [address] Medication Refill Social History Tobacco Use Types Packs/Day Years [...] Refills Last Filled Start Date End Date diclofenac (VOLTAREN) 75 mg Oral Tablet, Delayed Release (E.C.)Indications:Arth ritis of left acromioclavicular joint TAKE ONE TABLET BY MOUTH EVERY MORNING and TAKE ONE TABLET AT BEDTIME 60 Tablet 2 12/09/2024 documented in this encounter Plan of Treatment Upcoming Encounters Date Type Department Care Team (Late st Contact Info) Description 12/26/2024 1:00 PM EDT Ancillary Procedure [facility] [address] [place] [address] Audrey Pike PA [address] [place] [address] 12/30/2024 9:15 AM EDT [facility] [address] [address] Jeffrey Starr MD [address] [place] [address] 12/30/2024 11:10 AM EDT Clinical Support [facility] [address] [phone] 02/03/2025 10:30 AM EST Office Visit [facility] [address] [address] Garry Wilson MD [address] [address] 04/08/2025 3:40 PM EST Office Visit [facility] [address] [address] Bonnie Callahan MD [address] [address] documented as of this encounter Visit Diagnoses Diagnosis Arthritis of left acromioclavicular joint- Primary documented in this encounter Discontinued Medications Medication Sig Discontinue Reason Start Date End Da te diclofenac (VOLTAREN) 75 mg Oral Tablet, Delayed Release (E.C.) Take 1 Tablet by mouth 2 times daily. 10/21/2024 12/09/2024 documented as of this encounter Care Teams Cable Tower Operator Relationship Specialty Start Date End Date Jorge Carpenter MD [address] [place] [phone] PCP - General Family Medicine 07/21/12 Tej Krishnan MD [address] [place] [phone] Otolaryngology 06/03/23 Ayan Edwards APRN [address] [place] [address] Nurse Practitioner 08/21/23 documented as of this encounter
--- OUTSIDE RECORDS SUMMARY | 2024-12-25 08:47 | XMS_ITS | Encounter Summary ---
Author Organization [facility] [place] [address] Care Team Providers Care Support Assistant Name Role Phone Jayden Cortes MD, [place] Primary Care Provider + Tej Krishnan MD Unavailable [phone] Ayan Edwards APRN Unavailable [phone] Encounter Details Date Type Department Care Team (Late st Contact Info) Description 07/24/2024 Orders Only [facility] [place] [address] [facility] [address] [place] [phone] Nba Wynn OTR/L CHT Social History Tobacco Use Types Packs/Day Years [...] EDT Ancillary Procedure [facility] [address] [place] [phone] Audrey Pike PA [address] [place] [address] 12/30/2024 9:15 AM EDT Office Visit [facility] [address] [place] [address] Jeffrey Starr MD [address] [place] [address] 12/30/2024 11:10 AM EDT Clinical Support [facility] [address] [phone] 02/03/2025 10:30 AM EST Office Visit [facility] [address] [address] Garry Wilson MD [address] [address] 04/08/2025 3:40 PM EST Office Visit [facility] [address] [place] [address] Bonnie Callahan MD [address] [place] [address] documented as of this encounter Visit Diagnoses Not on filedocumented in this encounter Care Teams Support Assistant Relationship Specialty Start Date End Date Jorge Carpenter MD [address] [place] [phone] PCP - General Family Medicine 07/21/12 Tej Krishnan MD [address] [place] [phone] Otolaryngology 06/03/23 Ayan Edwards APRN [address] [place] [address] Nurse Practitioner 08/21/23 documented as of this encounter
--- OUTSIDE RECORDS SUMMARY | 2024-12-25 08:47 | XMS_ITS | Encounter Summary ---
Author Organization [place] [address] Care Team Providers Care Team Facilitator Name Role Phone Jayden Cortes MD, Curtis Primary Care Provider + Tej Krishnan MD Unavailable [phone] Ayan Edwards APRN Unavailable [phone] Encounter Details Date Type Department Care Team (Late st Contact Info) Description 07/21/2024 Orders Only [facility] [place] [address] [facility] [address] [place] [address] Yesenia Mendoza OT Social History Tobacco Use Types Packs/Day Years [...] Ancillary Procedure [facility] [address] [place] [phone] Audrey Pike PA [address] [place] [address] 12/30/2024 9:15 AM EDT Office Visit [facility] [address] [address] Jeffrey Starr MD [address] [place] [address] 12/30/2024 11:10 AM EDT Clinical Support [facility] [address] [phone] 02/03/2025 10:30 AM EST Office Visit [facility] [address] [address] Garry Wilson MD [address] [address] 04/08/2025 3:40 PM EST Office Visit [facility] [address] [place] [address] Bonnie Callahan MD [address] [place] [address] documented as of this encounter Visit Diagnoses Not on filedocumented in this encounter Care Teams Team Facilitator Relationship Specialty Start Date End Date Jorge Carpenter MD [address] [place] [phone] PCP - General Family Medicine 07/21/12 Tej Krishnan MD [address] [place] [phone] Otolaryngology 06/03/23 Ayan Edwards APRN [address] [place] [address] Nurse Practitioner 08/21/23 documented as of this encounter
--- NOTE | 2024-12-25 08:59 | NM_ITS ---
FINAL REPORT TECHNIQUE: Sequential anterior images were obtained after the ingestion of eggs radiolabeled with mCi technetium 99M sulfur colloid. CLINICAL HISTORY: NAUSEA AND VOMITING 8:50 am .62 mci tc sulfur colloid injected into 2 wholes eggs 1 white toast with butter 6 oz cup of water FINDINGS: GASTRIC EMPTYING SCAN Static images show normal emptying of the stomach into the small bowel. Based on the time activity curve, the estimated half-emptying time is 148 minutes which is abnormally prolonged. Gastroparesis versus partial outlet obstruction. IMPRESSION: Abnormally prolonged gastric emptying study. Reviewed, Interpreted and Dictated by Trino Munoz MD Transcribed by Jen Turner Authenticated and . [facility]
[2024-12-25] MEDS: TC99M SULF.COLLOID;1 DOSE (UP TO 20 MCI) IV (09:50)
== END 2024-12-25 23:59 | disposition home or self-care (01) ==
LOC: RAD 08:41
PROVIDERS: PCP Nurse Practitioner Family; Visit Provider Nurse Practitioner Family
DX: R93.3 Abnormal findings on diagnostic imaging of other parts of digestive tract (principal); R11.2 Nausea with vomiting, unspecified
CPT/HCPCS: 78264; A9541